=== PATIENT | male | born 1955 | race Caucasian/White ===

== ENCOUNTER 2021-06-08 17:54 | Emergency (ER) | payer OTHER ==
[~2021-06-08] VITALS: Ht 180.3 cm; Wt 84.0 kg
[2021-06-08] MEDS ORDERED: HYDROCODONE/ACETAMINOPHEN 10/325MG TABLET PO ONE (20:15)
[2021-06-08 21:42] VITALS: BP 141/85
== END 2021-06-08 21:42 | disposition home or self-care (01) ==
LOC: ER 18:24
DX: M25.561 Pain in right knee (principal); I10 Essential (primary) hypertension; Z88.0 Allergy status to penicillin; Z98.890 Other specified postprocedural states
CPT/HCPCS: 29505; 73562; 99283